=== PATIENT | male | born 1995 | race Caucasian/White ===

== ENCOUNTER 2020-02-21 11:04 | Day surgery (SDC) | payer MEDICAID ==
[~2020-02-21] VITALS: Ht 182.9 cm; Wt 86.4 kg
[~2020-02-21 11:04] MED LIST: ASCO-134 PO; FERR-29 PO; famotidine 20mg tablet PO ONE; ringers solution, lacted 1,000 ML IV SCH
[2020-02-21 12:52] VITALS: BP 119/66
[2020-02-21 13:07] VITALS: BP 119/66
[2020-02-21] MEDS ORDERED: fentaNYL/PF 50MCG/1 ML 2ML syringe ONE (14:29)
[2020-02-21] MEDS ORDERED: LIDOcaine 1%/PF 5ML 10 MG/ML VIAL ONE (14:32)
[2020-02-21] MEDS ORDERED: sevoflurane 250ml liquid IH ONE (14:32)
[2020-02-21] MEDS ORDERED: MIDAZolam 5mg/5ml vial ONE (14:32)
[2020-02-21] MEDS ORDERED: rocuronium 10mg/ml inj IV ONE (14:33)
[2020-02-21] MEDS ORDERED: propofol inj 20 ML IV ONE (14:33)
[2020-02-21] MEDS ORDERED: ondansetron/PF 4mg/2ml inj ONE (14:34)
[2020-02-21] MEDS ORDERED: dexamethasone sod phosphate 4mg/ml inj. ONE (14:34)
[2020-02-21] MEDS ORDERED: glycopyrrolate 0.2mg/ml inj ONE (14:34)
[2020-02-21] MEDS ORDERED: neostigmine methylsulfate 1 MG/ML 10ml vial ONE (14:34)
[2020-02-21 15:04] VITALS: BP 118/79
--- NOTE | 2020-02-21 15:04 | NUR ---
Received from OR via [facility] , accompanied by Anesthesiologist SAMM and report given by Anesthesiolgist. PATIENT WITH 20G PIV IN LEFT UE RUNNING LR AT 100. POSTERIOR ILLIAC CREST DRESSING IS CDI. SISTER BROUGHT IN AFTER ANESTHESIA LEFT THE ROOM. VSS. Addendum: 02/21/20 at 1519 by Griffin Armenta RN, RN Amended: Links added.
[2020-02-21] MEDS ORDERED: ringers solution, lacted 1,000 ML IV SCH (15:08)
[2020-02-21] MEDS ORDERED: morphine 4 MG/ML inj SYRINge IV PRN (15:10)
[2020-02-21] MEDS ORDERED: ondansetron/PF 4mg/2ml inj IV PRN (15:10)
[2020-02-21] MEDS ORDERED: fentaNYL/PF 50MCG/1 ML 2ML syringe IV PRN ×2 (15:10)
[2020-02-21] MEDS ORDERED: labetalol 20mg/4ml (5mg/ml) syringe IV PRN (15:10)
[2020-02-21] MEDS ORDERED: hydrALAZINE 20mg/ml inj. IV PRN (15:10)
[2020-02-21] MEDS ORDERED: morphine 2 MG/ML inj. syringe IV PRN (15:10)
[2020-02-21 15:14] VITALS: BP 111/73
[2020-02-21 15:24] VITALS: BP 115/79
[2020-02-21 15:34] VITALS: BP 118/82
[2020-02-21 15:35] LABS: BASOPHILS % (AUTO) 0.4 % (0-1); EOSINOPHILS % (AUTO) 0.6 % (0-6); HEMOGLOBIN 12.1 g/dl (14.0-17.9); LYMPHOCYTES % (AUTO) 16.8 % (21-51); MEAN CORPUSCULAR HEMOGLOBIN 35.4 PG (27.0-31.0); MEAN CORPUSCULAR HGB CONC 33.7 g/dL (33.0-36.5); MEAN CORPUSCULAR VOLUME 105.2 FL (78-98); MEAN PLATELET VOLUME 10.1 FL (7.4-10.4); MONOCYTES # (AUTO) 0.4 X10'3 (0-0.9); MONOCYTES % (AUTO) 6.5 % (2-12); NEUTROPHILS # (AUTO) 4.6 X10'3 (1.8-7.7); NEUTROPHILS % (AUTO) 75.7 % (42-75); PLATELET COUNT 168 X10'3 (140-440); RED BLOOD COUNT 3.42 X10'6 (4.70-6.10); WHITE BLOOD COUNT 6.1 X10'3 (4.5-11.0)
--- NOTE | 2020-02-21 15:44 | NUR ---
I HAVE REVIEWED D/C INSTRUCTIONS WITH PATIENT AND FAMILY AND THEY HAVE VERBALIZED UNDERSTANDING. PATIENT D/C HOME WITH ALL BELONGINGS AND FAMILY GAVE TRANSPORT HOME.SISTER ASSISTED IN DRESSING PATIENT. STATES THAT HE IS BACK TO BASELINE. VSS. DRESSING(BANDAID) STILL CDI. OUT VIA WHEELCHAIR TO PERSONAL VEHICLE WHERE FAMILY DROVE HIM HOME. Addendum: 02/21/20 at 1557 by Griffin Armenta RN, RN Amended: Links added.
== END 2020-02-21 15:44 | disposition home or self-care (01) ==
LOC: PAS 11:04
PROVIDERS: ATTEND Internal Medicine Hematology
DX: D53.9 Nutritional anemia, unspecified (principal); D68.9 Coagulation defect, unspecified; D70.9 Neutropenia, unspecified; Z11.59 Encounter for screening for other viral diseases; Z79.899 Other long term (current) drug therapy
CPT/HCPCS: 36415; 38220; 82948; 85025; 85999; J1100; J2250; J2405; J2704; J2710; J3010; U0003; A4618; J3490; J7120